=== PATIENT | male | born 2000 | race Caucasian/White ===

== ENCOUNTER 2021-01-22 08:46 | Emergency (ER) | payer BC ==
[~2021-01-22] VITALS: Ht 193 cm; Wt 81.8 kg
[2021-01-22 08:52] VITALS: BP 152/77; TEMP 98.3
[2021-01-22 09:28] LABS: BASO % 0.3 % (0.0-2.0); EOS # 0.1 (0.0-0.7); EOS % 0.9 % (0-4.0); GRAN # 6.2 (1.4-6.5); HEMATOCRIT 43.8 % (42.0-52.0); HEMOGLOBIN 15.5 g/dl (13.5-18.0); LYMPH # 1.2 (1.2-3.4); LYMPH % 13.7 % (20.0-51.0); MEAN CELL VOLUME 93 fl (80.0-100.0); MEAN CORPUSCULAR HEMOGLOBIN 33 pg (27.0-31.0); MEAN CORPUSCULAR HGB CONC 35 g/dl (33.0-37.0); MEAN PLATELET VOLUME 10.5 fl (7.4-10.4); MONO # 1.2 (0.1-0.6); MONO % 13.8 % (1.7-9.3); PLATELET COUNT 170 K/mm3 (130-400); RED BLOOD COUNT 4.71 M/mm3 (4.20-5.60); REDCELL DISTRIBUTION WIDTH-CV 11.9 % (11.5-14.5)
[2021-01-22 09:42] LABS: MONOSCREEN NEGATIVE
[2021-01-22 09:42] LABS: STREP SCREEN POSITIVE
[2021-01-22] MEDS ORDERED: ZITHROMAX 250M250 MG PO (10:06)
[2021-01-22 10:48] VITALS: PULSE 89
== END 2021-01-22 10:48 | disposition home or self-care (01) ==
LOC: COL.ER 08:46
PROVIDERS: Family Medicine
DX: J02.0 Streptococcal pharyngitis (principal)
CPT/HCPCS: J1100; J7120